=== PATIENT | female | born 1975 | race Caucasian/White ===

== ENCOUNTER 2016-09-25 07:05 | Inpatient (IN) | payer OTHER ==
[~2016-09-25] VITALS: Ht 170.2 cm; Wt 105.9 kg
[2016-09-25] VITALS (20 sets, daily range): BP systolic 101–134; BP diastolic 62–93
[~2016-09-25 07:05] MED LIST: AMBIEN10 MG PO; ASCORBIC ACID500 M3 PO; DAILY VALUE1 EACH PO; FISH OIL 1,0001 EAC7 PO; FLONASE16 G1 BOTH NARES; MUCINEX1200 MG PO; PRENATAL TABLE1 EAC3 PO; PRILOSEC40 MG PO; PROAIR HFA8.5 GM IH; PROZAC40 MG PO; XANAX0.5 MG PO; ZANTAC150 MG PO
[2016-09-25] MEDS ORDERED: IRON325 M1 PO (08:41)
[2016-09-25 09:15] LABS: EOSINOPHIL (%) 5.3 % (0-5); EOSINOPHIL COUNT 0.5 K/uL (0-0.3); HEMATOCRIT 28.2 % (36.0-46.0); IMMATURE GRANULOCYTE (%) 0.6 % (0.0-0.7); IMMATURE GRANULOCYTE COUNT 0.6 K/uL; LYMPHOCYTE COUNT 1.7 K/uL (1.0-2.8); MCH 33.1 PG (29.0-34.0); MCHC 34.8 G/DL (30.0-36.0); MCV 95.3 FL (83-99); MEAN PLAT.VOLUME 9.5 uM^3 (9.5-12.4); MONOCYTE (%) 7.4 % (3-12); MONOCYTE COUNT 0.7 K/uL (0-0.8); NEUTROPHIL (%) 69.3 % (45-76); NEUTROPHIL COUNT 6.7 K/uL (1.8-6.4); PLATELET COUNT 228 K/uL (156-360); RBC DIS.WIDTH-CV 13.7 % (11.8-14.6); RED BLOOD COUNT 2.96 M/uL (3.80-5.20); WHITE BLOOD COUNT 9.6 K/uL (4.1-10.2)
[2016-09-26] VITALS (23 sets, daily range): BP systolic 96–134; BP diastolic 55–84
[2016-09-27] VITALS (8 sets, daily range): BP systolic 106–123; BP diastolic 58–68
[2016-09-27 05:51] LABS: EOSINOPHIL (%) 0.6 % (0-5); EOSINOPHIL COUNT 0.1 K/uL (0-0.3); HEMATOCRIT 20.5 % (36.0-46.0); IMMATURE GRANULOCYTE (%) 0.5 % (0.0-0.7); IMMATURE GRANULOCYTE COUNT 0.1 K/uL; LYMPHOCYTE COUNT 1.8 K/uL (1.0-2.8); MCH 32.7 PG (29.0-34.0); MCHC 34.1 G/DL (30.0-36.0); MCV 95.8 FL (83-99); MEAN PLAT.VOLUME 10.4 uM^3 (9.5-12.4); MONOCYTE (%) 7.3 % (3-12); MONOCYTE COUNT 0.9 K/uL (0-0.8); NEUTROPHIL (%) 77.4 % (45-76); NEUTROPHIL COUNT 9.7 K/uL (1.8-6.4); PLATELET COUNT 211 K/uL (156-360); RBC DIS.WIDTH-CV 13.8 % (11.8-14.6); RBC DIS.WIDTH-SD 48.1 % (39-53); RED BLOOD COUNT 2.14 M/uL (3.80-5.20); WHITE BLOOD COUNT 12.5 K/uL (4.1-10.2)
[2016-09-27 07:48] LABS: ANION GAP 9 MEQ/L (2-14); CHLORIDE 99 MEQ/L (99-109); GFR ESTIMATE (CALCULATED) > 59 mL/min/; GLUCOSE 95 mg/dL (70-99); POTASSIUM 4.2 MEQ/L (3.7-5.4); SAMPLE HEMOLYSIS CHECK 0; SAMPLE ICTERIC CHECK 0; SAMPLE LIPEMIA CHECK 0; SODIUM 131 MEQ/L (136-147); UREA NITROGEN (BUN) 12 mg/dL (9-23)
[2016-09-28] VITALS (12 sets, daily range): BP systolic 98–119; BP diastolic 54–71
[2016-09-28 08:36] LABS: HEMATOCRIT 19.5 % (36.0-46.0); MCH 33.2 PG (29.0-34.0); MCHC 34.9 G/DL (30.0-36.0); MCV 95.2 FL (83-99); MEAN PLAT.VOLUME 10.1 uM^3 (9.5-12.4); PLATELET COUNT 207 K/uL (156-360); RBC DIS.WIDTH-CV 14.1 % (11.8-14.6); RBC DIS.WIDTH-SD 48.7 % (39-53); RED BLOOD COUNT 2.05 M/uL (3.80-5.20)
[2016-09-28 08:38] LABS: WHITE BLOOD COUNT 8.3 K/uL (4.1-10.2)
[2016-09-29 00:17] VITALS: BP 104/55
[2016-09-29 07:15] VITALS: BP 110/56
[2016-09-29 08:06] LABS: EOSINOPHIL (%) 7.4 % (0-5); EOSINOPHIL COUNT 0.6 K/uL (0-0.3); HEMATOCRIT 22.9 % (36.0-46.0); IMMATURE GRANULOCYTE (%) 0.6 % (0.0-0.7); IMMATURE GRANULOCYTE COUNT 0.1 K/uL; LYMPHOCYTE COUNT 2.2 K/uL (1.0-2.8); MCHC 34.1 G/DL (30.0-36.0); MCV 93.9 FL (83-99); MEAN PLAT.VOLUME 9.6 uM^3 (9.5-12.4); MONOCYTE (%) 8.1 % (3-12); MONOCYTE COUNT 0.6 K/uL (0-0.8); NEUTROPHIL (%) 55.9 % (45-76); NEUTROPHIL COUNT 4.4 K/uL (1.8-6.4); PLATELET COUNT 214 K/uL (156-360); RBC DIS.WIDTH-CV 15.6 % (11.8-14.6); RBC DIS.WIDTH-SD 53.6 % (39-53); RED BLOOD COUNT 2.44 M/uL (3.80-5.20); WHITE BLOOD COUNT 7.9 K/uL (4.1-10.2)
[2016-09-29 16:00] VITALS: BP 132/67
[2016-09-29 22:53] VITALS: BP 120/63
[2016-09-30 06:55] VITALS: BP 127/70
[2016-09-30] MEDS ORDERED: ENDOCET 5-3251 EACH PO (09:59)
[2016-09-30] MEDS ORDERED: FERROUS SULFAT325 MG PO (09:59)
[2016-09-30] MEDS ORDERED: IBUPROFEN800 MG PO (09:59)
[2016-09-30] MEDS ORDERED: DOCUSATE SODIU100 MG PO (09:59)
== END 2016-09-30 12:47 | disposition home or self-care (01) | DRG 765 ==
LOC: LDRP-OP 07:05 → 2WEST 07:06 → LDRP-OP 08:01 → 2WEST 09-26 17:33 → LDRP-OP 10-31 21:51
PROVIDERS: Obstetrics & Gynecology
PROC: 3E033VJ Introduction of Other Hormone into Peripheral Vein, Percutaneous Approach (ICD-10-PCS; 2016-09-25)
PROC: 3E0P7GC Introduction of Other Therapeutic Substance into Female Reproductive, Via Natural or Artificial Opening (ICD-10-PCS; 2016-09-25)
PROC: 10D00Z1 Extraction of Products of Conception, Low, Open Approach (ICD-10-PCS; principal; 2016-09-26)
PROC: 30233N1 Transfusion of Nonautologous Red Blood Cells into Peripheral Vein, Percutaneous Approach (ICD-10-PCS; 2016-09-28)
DX: O61.0 Failed medical induction of labor (principal); O99.02 Anemia complicating childbirth; D62 Acute posthemorrhagic anemia; O99.52 Diseases of the respiratory system complicating childbirth; J45.909 Unspecified asthma, uncomplicated; O99.344 Other mental disorders complicating childbirth; F31.9 Bipolar disorder, unspecified; O99.214 Obesity complicating childbirth; E66.9 Obesity, unspecified; Z68.31 Body mass index [BMI] 31.0-31.9, adult; Z3A.39 39 weeks gestation of pregnancy; Z37.0 Single live birth
CPT/HCPCS: 80048; 85025; 85027; 86850; 86900; 86901; 86920; G0378; J0595; J1100; J1170; J1200; J1885; J2210; J2274; J2405; J7120; P9016